=== PATIENT | male | born 1945 | race Caucasian/White ===

== ENCOUNTER 2017-10-20 15:37 | Emergency (ER) | payer MEDICARE, OTHER ==
[2017-10-20 16:19] LABS: Appearance,Urine Cloudy (Clear); Bacteria,Urine Many /hpf; Bilirubin,Urine Negative (Negative); Blood,Urine Trace (Negative); Color,Urine Light Yellow; Glucose,Urine (UA) Negative (Negative); Ketones,Urine Negative (Negative); Leukocyte Esterase,Urine Large (Negative); Mucus,Urine Rare /hpf; Nitrite,Urine Negative (Negative); Protein,Urine Trace (Negative); Specific Gravity,Urine 1.008 (1.001-1.035); Urobilinogen,Urine <2.0 mg/dL (<2.0); WBC,Urine >182 /hpf (0-5)
[2017-10-20] MEDS ORDERED: cefTRIAXone IN SWFI 1,000 MG/10 ML SYRINGE IVP STA (16:27)
--- NOTE | 2017-10-20 16:30 | ED ---
General Adult HPI - General Chief complaint: Urogenital Stated complaint: UTI Time Seen by Provider: 10/20/17 16:00 Source: patient, RN notes reviewed Mode of arrival: wheelchair Limitations: no limitations - History of Present Illness Initial comments: This is a 71-year-old male who presents emergency Department with a past history significant for MS and self-catheterization twice a day. Patient comes in today with what he believes to be a urinary tract infection because he has had many in the past. Patient states she's had increased urinary frequency and dysuria. Patient denies any fever chills per patient denies any abdominal pain. Patient denies any nausea vomiting diarrhea. - Related Data Home Medications Medication Instructions Recorded Confirmed Baclofen [Lioresal] 10 mg PO QID 10/20/17 10/20/17 OXcarbazepine [Trileptal] 150 mg PO QID 10/20/17 10/20/17 Tamsulosin HCl [Flomax] 0.8 mg PO HS 10/20/17 10/20/17 Previous Rx's Medication Instructions Recorded Nitrofurantoin Monohyd/M-Cryst 100 mg PO Q12HR #14 cap 10/20/17 [Macrobid] Allergies Allergy/AdvReac Type Severity Reaction Status Date / Time bethanechol Allergy tachycardia Verified 10/20/17 16:31 Sulfa (Sulfonamide Allergy Rash/Hives Verified 10/20/17 16:31 Antibiotics) Review of Systems ROS Statement: Those systems with pertinent positive or pertinent negative responses have been documented in the HPI. ROS Other: All systems not noted in ROS Statement are negative. 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 Patient is nontoxic and well- hydrated and is in no acute distress. ENT: Neck is soft and supple. No significant lymphadenopathy is noted. Oropharynx is clear. Moist mucous membranes. EYES: The sclera were anicteric and conjunctiva were pink and moist. Extraocular movements were intact and pupils were equal round and reactive to light. Eyelids were unremarkable. PULMONARY: Unlabored respirations. Good breath sounds bilaterally. No audible rales rhonchi or wheezing was noted. CARDIOVASCULAR: There is a regular rate and rhythm without any murmurs gallops or rubs. ABDOMEN: Soft and nontender with normal bowel sounds. SKIN: Skin is clear with no lesions or rashes and otherwise unremarkable. NEUROLOGIC: Patient is alert and oriented x3. Cranial nerves II through XII are grossly intact. Motor and sensory are also intact. Normal speech, volume and content. Symmetrical smile. MUSCULOSKELETAL: Normal extremities with adequate strength and full range of motion. LYMPHATICS: No significant lymphadenopathy is noted PSYCHIATRIC: Normal psychiatric evaluation. Limitations: no limitations Course Vital Signs 10/20/17 10/20/17 15:59 16:56 Temperature 98.4 F 100.2 F H Pulse Rate 75 71 Respiratory 18 16 Rate Blood Pressure 154/78 148/72 O2 Sat by Pulse 98 97 Oximetry Medical Decision Making - Lab Data Lab Results 10/20/17 Range/Units Unknown Urine Color Light Yellow Urine Appearance Cloudy (Clear) Urine pH 7.0 (5.0-8.0) Ur Specific [place] 1.008 (1.001-1.035) Urine Protein Trace H (Negative) Urine Glucose (UA) Negative (Negative) Urine Ketones Negative (Negative) Urine Blood Trace H (Negative) Urine Nitrite Negative (Negative) Urine Bilirubin Negative (Negative) Urine Urobilinogen <2.0 (<2.0) mg/dL Ur Leukocyte Esterase Large H (Negative) Urine WBC >182 H (0-5) /hpf Urine WBC Clumps Moderate H (None) /hpf Urine Bacteria Many H (None) /hpf Urine Mucus Rare H (None) /hpf Disposition Clinical Impression: Urinary tract infection Disposition: HOME SELF-CARE Condition: Good Instructions: Urinary Tract Infection in Men (ED) Prescriptions: Nitrofurantoin Monohyd/M-Cryst [Macrobid] 100 mg PO Q12HR #14 cap Is patient prescribed a controlled substance at d/c from ED?: No Referrals: Nonstaff,Physician [Primary Care Provider] - 1-2 days Time of Disposition: 16:29
[2017-10-20 16:57] VITALS: BP 148/72; PULSE 71; RESP 16; TEMP 100.2
[2017-10-20] MEDS ORDERED: cefTRIAXone 1,000 MG VIAL (IM USE) IM STA (17:08)
== END 2017-10-20 17:23 | disposition home or self-care (01) ==
LOC: EC 15:37
DX: N39.0 Urinary tract infection, site not specified (principal); G35 Multiple sclerosis; Z79.899 Other long term (current) drug therapy; Z88.2 Allergy status to sulfonamides; Z88.8 Allergy status to other drugs, medicaments and biological substances
CPT/HCPCS: 81001; 87077; 87086; 87186; 99283